=== PATIENT | female | born 1955 | race Caucasian/White ===

== ENCOUNTER → 2021-11-03 | Day surgery (SDC) | payer MEDICARE ==
[~2021-11-03] MED LIST: Lidocaine 2% PF 5 ML VIAL ONE; Sodium Bicarbonate 2.5 MEQ/5 ML VIAL ONE
== END ==
LOC: ULT 10:22
PROVIDERS: ATTEND Internal Medicine Gastroenterology
PROC: 0W9G3ZZ Drainage of Peritoneal Cavity, Percutaneous Approach (ICD-10-PCS; principal; 2021-11-03)
DX: R18.8 Other ascites (principal); Z88.0 Allergy status to penicillin; Z88.2 Allergy status to sulfonamides; Z88.8 Allergy status to other drugs, medicaments and biological substances
CPT/HCPCS: 49083; J2001

== ENCOUNTER 2021-11-09 12:32 | Day surgery (SDC) | payer MEDICARE ==
[2021-11-08 11:21] VITALS: BMI 30.2
[2021-11-09] MEDS ORDERED: Lidocaine 2% PF 5 ML VIAL ONE (12:43)
[2021-11-09] MEDS ORDERED: Sodium Bicarbonate 2.5 MEQ/5 ML VIAL ONE (12:43)
== END 2021-11-09 13:55 | disposition home or self-care (01) ==
LOC: ULT 12:32
PROVIDERS: ATTEND Internal Medicine
PROC: 0W9G3ZZ Drainage of Peritoneal Cavity, Percutaneous Approach (ICD-10-PCS; principal; 2021-11-09)
DX: C78.7 Secondary malignant neoplasm of liver and intrahepatic bile duct (principal); C78.89 Secondary malignant neoplasm of other digestive organs; C78.00 Secondary malignant neoplasm of unspecified lung; R18.0 Malignant ascites; I10 Essential (primary) hypertension; E07.9 Disorder of thyroid, unspecified; E78.5 Hyperlipidemia, unspecified; Z85.3 Personal history of malignant neoplasm of breast; Z86.711 Personal history of pulmonary embolism; Z88.0 Allergy status to penicillin; Z88.2 Allergy status to sulfonamides; Z88.8 Allergy status to other drugs, medicaments and biological substances; Z91.041 Radiographic dye allergy status
CPT/HCPCS: 49083; J2001

== ENCOUNTER 2021-11-10 10:08 | Inpatient (IN) | payer MEDICARE ==
[2021-11-10 11:08] LABS: #Eosinphils 0.1 thou/uL (0.0-0.7); #Lymphocytes 0.4 thou/uL (1.20-3.40); #Monocytes 1.3 thou/uL (0.11-0.59); #Neutrophils 15.2 thou/uL (1.40-6.50); %Basophils 0.1 % (0.0-1.0); %Eosinophils 0.6 % (0.0-10.0); %Lymphocytes 2.5 % (21.0-51.0); %Monocytes 7.6 % (0.0-10.0); %Neutrophils 89.3 % (42.0-75.0); Hemoglobin 13.7 g/dL (12.0-16.0); Mean Corpuscular HGB CONC 32.7 g/dL (32.0-36.0); Mean Corpuscular Hemoglobin 29.6 pg (27.0-31.0); Mean Corpuscular Volume 90.4 fL (78.0-98.0); Mean Platelet Volume 6.8 fL (7.4-10.4); Platelet Count 320 thou/uL (130-400); Red Blood Cell (RBC) Count 4.62 mill/uL (4.20-5.40)
[2021-11-10 11:23] LABS: ALT (SGPT) 82 U/L (8-55); AST (SGOT) 101 U/L (5-34); Albumin 2.7 g/dL (3.4-4.8); Alkaline Phosphatase 971 U/L (40-110); Anion Gap 16 mmol/L (10-20); BUN (Urea Nitrogen) 56 mg/dL (9.8-20.1); Bilirubin, Total 1.2 mg/dL (0.2-1.2); CK (CPK) 34 U/L (29-168); Calc. Creatinine Clearance 0 mL/min (70-130); Calcium 8.3 mg/dL (7.8-10.44); Carbon Dioxide 22 mmol/L (23-31); Estimated GFR 32; Glucose 181 mg/dL (80-115); Lipase 29 U/L (8-78); Potassium 4.7 mmol/L (3.5-5.1); Protein, Total 5.7 g/dL (5.8-8.1); Sodium 120 mmol/L (136-145)
[2021-11-10] MEDS ORDERED: Famotidine/PF 20 mg/2ml Vial ONE (11:24)
[2021-11-10 11:41] LABS: Chloride 87 mmol/L (98-107)
[2021-11-10 13:28] LABS: SARS-CoV-2 NAA Rapid Test Not Detected (NotDetected)
[2021-11-10] MEDS ORDERED: Zolpidem Tartrate 5 MG TAB PO PRN (13:45)
[2021-11-10] MEDS ORDERED: Ondansetron ODT 4 MG TAB PO PRN (13:45)
[2021-11-10] MEDS ORDERED: Senokot S 8.6-50 MG TAB PO PRN (13:45)
[2021-11-10] MEDS ORDERED: HYDROcodone/Acetaminophen 10/325 mg Tablet PO PRN (13:45)
[2021-11-10 14:16] LABS: Lactic Acid 2.9 mmol/L (0.5-2.2)
[2021-11-10 14:29] LABS: Magnesium 2.3 mg/dL (1.6-2.6); Phosphorus 5.3 mg/dL (2.3-4.7)
[2021-11-10 15:10] LABS: White Blood Cell (WBC) Count 17.1 thou/uL (4.8-10.8)
[2021-11-10] MEDS ORDERED: VANCOMYCIN 1.25 GM/250 ML BAG 1.25 GM in Premix Bag 1 BAG IVPB SCH (16:00)
[2021-11-10] MEDS: Sodium Chloride 0.9% 1,000 ML IV SCH (16:18)
[2021-11-10 16:51] LABS: Sodium 119 mmol/L (136-145)
[2021-11-10] MEDS: Albumin 25% 25 GM/100 ML BOT IVPB SCH (19:07)
[2021-11-10] MEDS ORDERED: ALPRAZolam 1 MG TAB PO SCH (20:00)
[2021-11-10] MEDS: Cefepime 1 GM in Sodium Chloride 0.9% 100 ML IVPB SCH (20:18)
[2021-11-10] MEDS: Apixaban 5 MG TAB PO SCH (20:18)
[2021-11-10 20:39] LABS: Sodium 121 mmol/L (136-145)
[2021-11-10] MEDS: Rosuvastatin 5 MG TAB PO SCH (22:20)
[2021-11-10 23:08] LABS: Bacteria/HPF None Seen HPF (None Seen); Bilirubin Negative (Negative); Blood, Urine Negative (Negative); Clarity Clear (Clear); Glucose, Urine (Dipstick) Normal (Negative); Ketone, Urine Negative (Negative); Leukocyte Negative Leu/uL (Negative); Nitrite Negative (Negative); Protein, Urine (Dipstick) 20 mg/dL (Neg-Trace); RBC/HPF 0-3 HPF (0-3); Specific Gravity, Urine 1.023 (1.002-1.036); Squamous Epithelial 0-3 HPF (0-3); Urobilinogen Normal mg/dL (Less than 2); WBC/HPF 0-3 HPF (0-3)
[2021-11-10 23:10] LABS: Urine Culture Reflex No No
[2021-11-11] MEDS: Albumin 25% 25 GM/100 ML BOT IVPB SCH ×3 (00:19→15:06)
[2021-11-11] MEDS: Sodium Chloride 0.9% 1,000 ML IV SCH (06:18)
[2021-11-11 06:26] LABS: #Eosinphils 0.4 thou/uL (0.0-0.7); #Lymphocytes 0.7 thou/uL (1.20-3.40); #Monocytes 1.1 thou/uL (0.11-0.59); #Neutrophils 14.5 thou/uL (1.40-6.50); %Basophils 0.2 % (0.0-1.0); %Eosinophils 2.4 % (0.0-10.0); %Lymphocytes 4.1 % (21.0-51.0); %Monocytes 6.7 % (0.0-10.0); %Neutrophils 86.7 % (42.0-75.0); Hemoglobin 12.8 g/dL (12.0-16.0); Mean Corpuscular HGB CONC 32.1 g/dL (32.0-36.0); Mean Corpuscular Hemoglobin 30.4 pg (27.0-31.0); Mean Corpuscular Volume 94.7 fL (78.0-98.0); Mean Platelet Volume 6.9 fL (7.4-10.4); Platelet Count 270 thou/uL (130-400); RBC Distribution Width 13.3 % (11.5-14.5); White Blood Cell (WBC) Count 16.8 thou/uL (4.8-10.8)
[2021-11-11] MEDS: Levothyroxine Sodium 88 MCG TAB PO SCH (06:34)
[2021-11-11 06:59] LABS: Anion Gap 17 mmol/L (10-20); BUN (Urea Nitrogen) 59 mg/dL (9.8-20.1); Calc. Creatinine Clearance 44 mL/min (70-130); Calcium 7.8 mg/dL (7.8-10.44); Carbon Dioxide 15 mmol/L (23-31); Chloride 92 mmol/L (98-107); Estimated GFR 41; Glucose 106 mg/dL (80-115); Potassium 4.4 mmol/L (3.5-5.1); Sodium 120 mmol/L (136-145)
[2021-11-11 08:07] LABS: ALT (SGPT) 57 U/L (8-55); AST (SGOT) 84 U/L (5-34); Alkaline Phosphatase 710 U/L (40-110); Bilirubin, Total 1.2 mg/dL (0.2-1.2); Protein, Total 5.6 g/dL (5.8-8.1)
[2021-11-11] MEDS ORDERED: PALONOSETRON HCL 0.05 MG/ML 5 ML VIAL IVP SCH (08:15)
[2021-11-11] MEDS ORDERED: Dexamethasone 10 MG/ML VIAL SLOW IVP SCH (08:15)
[2021-11-11] MEDS ORDERED: diphenhydrAMINE 50 MG/ML VIAL IVP SCH (08:15)
[2021-11-11] MEDS ORDERED: Sodium Bicarbonate 2.5 MEQ/5 ML VIAL ONE (08:18)
[2021-11-11] MEDS ORDERED: Lidocaine 2% PF 5 ML VIAL ONE (08:18)
[2021-11-11] MEDS ORDERED: FLU VACC QS2022-23(65YR UP)/PF 240 MCG/0.7 ML SYRINGE IM ONE (09:00)
[2021-11-11] MEDS: Cefepime 1 GM in Sodium Chloride 0.9% 100 ML IVPB SCH ×2 (09:56→20:49)
[2021-11-11] MEDS: Apixaban 5 MG TAB PO SCH ×2 (09:57→20:48)
[2021-11-11] MEDS ORDERED: SODIUM CHLORIDE 0.9% IVPB SCH ×2 (10:00)
[2021-11-11] MEDS ORDERED: CARBOPLATIN IVPB SCH (10:00)
[2021-11-11] MEDS ORDERED: PACLITAXEL IVPB SCH (10:00)
[2021-11-11 10:18] LABS: RBC Count-Automated (BF) 11051 /cu.mm; WBC/Nucleated-Auto (BF) 655 /cu.mm
[2021-11-11 10:31] LABS: Body Fluid Source Ascites Body Fluid; Tube # EDTA
[2021-11-11 10:32] LABS: BF Color Yellow; Clarity Hazy (Clear)
[2021-11-11] MEDS ORDERED: Vancomycin Sliding Scale IVPB PRN (10:33)
[2021-11-11 10:34] LABS: BF Segmented Neutrophils 21 %; Cell Count Non Hematic 43 %; Eosinophils 2 %; Lymphocytes 34 %
[2021-11-11] MEDS ORDERED: HYDROcodone/Acetaminophen 10/325 mg Tablet PO PRN (11:20)
[2021-11-11] MEDS ORDERED: Non-Formulary Item 1 EACH (Zolpidem Tartrate [Zolpidem Tartrate] 10 MG Tablet) PO PRN (11:20)
[2021-11-11] MEDS ORDERED: Docusate 100 MG CAP PO PRN (11:20)
[2021-11-11] MEDS ORDERED: Sodium Bicarbonate Tab 325 MG TAB PO SCH (12:00)
[2021-11-11] MEDS ORDERED: Senokot S 8.6-50 MG TAB PO PRN (12:15)
[2021-11-11 12:22] LABS: Anion Gap 16 mmol/L (10-20); BUN (Urea Nitrogen) 57 mg/dL (9.8-20.1); Calc. Creatinine Clearance 49 mL/min (70-130); Calcium 7.6 mg/dL (7.8-10.44); Carbon Dioxide 18 mmol/L (23-31); Chloride 92 mmol/L (98-107); Estimated GFR 46; Glucose 109 mg/dL (80-115); Sodium 122 mmol/L (136-145)
[2021-11-11] MEDS: ALPRAZolam 0.5 MG TAB PO SCH ×2 (13:08→20:48)
[2021-11-11] MEDS: Sodium Bicarbonate Tab 325 MG TAB PO SCH ×2 (15:06→20:49)
[2021-11-11 16:23] LABS: Vancomycin, Random 8.9 ug/mL (See Comment)
[2021-11-11] MEDS: Vancomycin 1 GM in Premix Bag 1 BAG IVPB SCH (17:38)
[2021-11-11] MEDS: Rosuvastatin 5 MG TAB PO SCH (20:49)
[2021-11-11] MEDS: Promethazine HCl 25 MG in Sodium Chloride 0.9% 50 ML IVPB PRN (22:02)
[2021-11-12] MEDS: Levothyroxine Sodium 88 MCG TAB PO SCH (06:01)
[2021-11-12 06:13] LABS: #Lymphocytes 0.2 thou/uL (1.20-3.40); #Monocytes 0.5 thou/uL (0.11-0.59); #Neutrophils 15.4 thou/uL (1.40-6.50); %Basophils 0.2 % (0.0-1.0); %Eosinophils 0.1 % (0.0-10.0); %Lymphocytes 1.4 % (21.0-51.0); %Monocytes 2.9 % (0.0-10.0); %Neutrophils 95.4 % (42.0-75.0); Mean Corpuscular HGB CONC 33.1 g/dL (32.0-36.0); Mean Corpuscular Hemoglobin 30.2 pg (27.0-31.0); Mean Corpuscular Volume 91.2 fL (78.0-98.0); Mean Platelet Volume 7.4 fL (7.4-10.4); Platelet Count 194 thou/uL (130-400); Red Blood Cell (RBC) Count 3.65 mill/uL (4.20-5.40); White Blood Cell (WBC) Count 16.1 thou/uL (4.8-10.8)
[2021-11-12 06:27] LABS: Anion Gap 15 mmol/L (10-20); BUN (Urea Nitrogen) 53 mg/dL (9.8-20.1); Calc. Creatinine Clearance 59 mL/min (70-130); Calcium 7.7 mg/dL (7.8-10.44); Carbon Dioxide 17 mmol/L (23-31); Chloride 99 mmol/L (98-107); Estimated GFR 58; Glucose 154 mg/dL (80-115); Potassium 4.8 mmol/L (3.5-5.1); Sodium 126 mmol/L (136-145)
[2021-11-12] MEDS: Promethazine HCl 25 MG in Sodium Chloride 0.9% 50 ML IVPB PRN ×3 (09:10→23:29)
[2021-11-12] MEDS: ALPRAZolam 0.5 MG TAB PO SCH ×3 (09:10→21:07)
[2021-11-12] MEDS: Sodium Bicarbonate Tab 325 MG TAB PO SCH ×3 (09:10→21:07)
[2021-11-12] MEDS: Cefepime 1 GM in Sodium Chloride 0.9% 100 ML IVPB SCH ×2 (09:10→21:07)
[2021-11-12] MEDS: Apixaban 5 MG TAB PO SCH ×2 (09:10→21:07)
[2021-11-12] MEDS ORDERED: Sodium Chloride 0.9% 1,000 ML IV SCH (09:30)
[2021-11-12] MEDS: Vancomycin 1 GM in Premix Bag 1 BAG IVPB SCH (16:13)
[2021-11-12] MEDS: Rosuvastatin 5 MG TAB PO SCH (21:07)
[2021-11-12] MEDS ORDERED: Bisacodyl 5 MG TAB PO PRN (23:10)
[2021-11-13] MEDS: Levothyroxine Sodium 88 MCG TAB PO SCH (05:14)
[2021-11-13 06:32] LABS: Lactic Acid 1.8 mmol/L (0.5-2.2)
[2021-11-13 06:38] LABS: ALT (SGPT) 96 U/L (8-55); AST (SGOT) 132 U/L (5-34); Albumin 3.1 g/dL (3.4-4.8); Alkaline Phosphatase 887 U/L (40-110); Anion Gap 13 mmol/L (10-20); BUN (Urea Nitrogen) 59 mg/dL (9.8-20.1); Bilirubin, Total 0.9 mg/dL (0.2-1.2); Calc. Creatinine Clearance 49 mL/min (70-130); Calcium 7.9 mg/dL (7.8-10.44); Carbon Dioxide 25 mmol/L (23-31); Chloride 95 mmol/L (98-107); Estimated GFR 46; Globulin 2.2 g/dL (2.4-3.5); Glucose 169 mg/dL (80-115); Magnesium 2.6 mg/dL (1.6-2.6); Potassium 4.1 mmol/L (3.5-5.1); Protein, Total 5.3 g/dL (5.8-8.1); Sodium 129 mmol/L (136-145)
[2021-11-13 06:45] LABS: Band 2 % (5-11); Hemoglobin 12.2 g/dL (12.0-16.0); Lymphocytes 1 % (21-51); MDiff Complete? YES; Mean Corpuscular HGB CONC 32.4 g/dL (32.0-36.0); Mean Corpuscular Hemoglobin 29.7 pg (27.0-31.0); Mean Corpuscular Volume 91.7 fL (78.0-98.0); Mean Platelet Volume 7.7 fL (7.4-10.4); Monocytes 2 % (0-10); Neutrophil 95 % (42-75); Platelet Count 218 thou/uL (130-400); RBC Distribution Width 13.4 % (11.5-14.5); Red Blood Cell (RBC) Count 4.11 mill/uL (4.20-5.40); White Blood Cell (WBC) Count 21.4 thou/uL (4.8-10.8)
[2021-11-13] MEDS: Sodium Bicarbonate Tab 325 MG TAB PO SCH ×2 (08:46→14:35)
[2021-11-13] MEDS: Cefepime 1 GM in Sodium Chloride 0.9% 100 ML IVPB SCH ×2 (08:47→21:01)
[2021-11-13] MEDS: Apixaban 5 MG TAB PO SCH ×2 (08:47→21:01)
[2021-11-13] MEDS: ALPRAZolam 0.5 MG TAB PO SCH ×3 (08:47→21:01)
[2021-11-13] MEDS ORDERED: Polyethylene Glycol 3350 17 GM Packet PO SCH ×2 (10:50→11:00)
[2021-11-13] MEDS ORDERED: Famotidine 20 MG TAB PO SCH (11:00)
[2021-11-13] MEDS ORDERED: Sodium Chloride 0.9% 1,000 ML IV SCH (11:15)
[2021-11-13] MEDS: Senokot S 8.6-50 MG TAB PO SCH (12:49)
[2021-11-13] MEDS: Promethazine HCl 25 MG in Sodium Chloride 0.9% 50 ML IVPB PRN (13:48)
[2021-11-13] MEDS: Albumin 25% 25 GM/100 ML BOT IVPB SCH ×2 (14:38→21:00)
[2021-11-13 16:31] LABS: Vancomycin, Trough 17.8 ug/mL
[2021-11-13] MEDS: Famotidine 20 MG TAB PO SCH (21:01)
[2021-11-13] MEDS: Rosuvastatin 5 MG TAB PO SCH (21:01)
[2021-11-13] MEDS: Acetaminophen 325 MG TAB PO PRN (22:56)
[2021-11-14] MEDS: Levothyroxine Sodium 88 MCG TAB PO SCH (05:27)
[2021-11-14 05:37] LABS: #Eosinphils 0.2 thou/uL (0.0-0.7); #Lymphocytes 0.4 thou/uL (1.20-3.40); #Monocytes 0.2 thou/uL (0.11-0.59); #Neutrophils 18.6 thou/uL (1.40-6.50); %Eosinophils 1.2 % (0.0-10.0); %Lymphocytes 2.3 % (21.0-51.0); %Monocytes 0.9 % (0.0-10.0); %Neutrophils 95.7 % (42.0-75.0); Hemoglobin 10.8 g/dL (12.0-16.0); Mean Corpuscular HGB CONC 32.1 g/dL (32.0-36.0); Mean Corpuscular Hemoglobin 29.5 pg (27.0-31.0); Mean Platelet Volume 7.9 fL (7.4-10.4); Platelet Count 146 thou/uL (130-400); RBC Distribution Width 13.5 % (11.5-14.5); Red Blood Cell (RBC) Count 3.67 mill/uL (4.20-5.40); White Blood Cell (WBC) Count 19.4 thou/uL (4.8-10.8)
[2021-11-14 05:56] LABS: ALT (SGPT) 75 U/L (8-55); AST (SGOT) 96 U/L (5-34); Albumin 3.3 g/dL (3.4-4.8); Alkaline Phosphatase 684 U/L (40-110); Anion Gap 14 mmol/L (10-20); BUN (Urea Nitrogen) 57 mg/dL (9.8-20.1); Bilirubin, Total 1.1 mg/dL (0.2-1.2); Calc. Creatinine Clearance 55 mL/min (70-130); Calcium 7.9 mg/dL (7.8-10.44); Carbon Dioxide 21 mmol/L (23-31); Chloride 98 mmol/L (98-107); Estimated GFR 53; Globulin 1.8 g/dL (2.4-3.5); Glucose 120 mg/dL (80-115); Magnesium 2.7 mg/dL (1.6-2.6); Protein, Total 5.1 g/dL (5.8-8.1); Sodium 129 mmol/L (136-145)
[2021-11-14] MEDS: Acetaminophen 325 MG TAB PO PRN ×2 (06:42→20:45)
[2021-11-14] MEDS: Albumin 25% 25 GM/100 ML BOT IVPB SCH (08:52)
[2021-11-14] MEDS: Polyethylene Glycol 3350 17 GM Packet PO SCH (08:53)
[2021-11-14] MEDS: Apixaban 5 MG TAB PO SCH (08:53)
[2021-11-14] MEDS: Senokot S 8.6-50 MG TAB PO SCH ×3 (08:53→21:34)
[2021-11-14] MEDS: ALPRAZolam 0.5 MG TAB PO SCH ×3 (08:53→20:44)
[2021-11-14] MEDS: Famotidine 20 MG TAB PO SCH (08:53)
[2021-11-14] MEDS: Calcium Carbonate 500 MG ChewTAB PO PRN ×2 (09:50→14:30)
[2021-11-14] MEDS ORDERED: Metoclopramide HCl 10 MG TAB PO PRN (10:10)
[2021-11-14] MEDS ORDERED: Ciprofloxacin 500 MG TAB PO SCH ×2 (10:45→22:00)
[2021-11-14] MEDS: Cefepime 1 GM in Sodium Chloride 0.9% 100 ML IVPB SCH (10:52)
[2021-11-14] MEDS ORDERED: Sodium Chloride 0.9% 1,000 ML IV SCH (14:45)
[2021-11-14] MEDS ORDERED: Pantoprazole 40 MG VIAL IVP SCH (15:00)
[2021-11-14 15:07] LABS: Hemoglobin 11.5 g/dL (12.0-16.0)
[2021-11-14 15:23] LABS: INR-International Normal Ratio 2.1; PTT 31.5 sec (22.9-36.1); Prothrombin Time 24.1 sec (12.0-14.7)
[2021-11-14] MEDS: Rosuvastatin 5 MG TAB PO SCH (20:44)
[2021-11-15] MEDS: Levothyroxine Sodium 88 MCG TAB PO SCH (04:52)
[2021-11-15] MEDS: Acetaminophen 325 MG TAB PO PRN (04:52)
[2021-11-15 06:14] LABS: #Basophils 0.1 thou/uL (0.0-0.2); #Eosinphils 0.2 thou/uL (0.0-0.7); #Lymphocytes 0.4 thou/uL (1.20-3.40); #Neutrophils 17.9 thou/uL (1.40-6.50); %Basophils 0.4 % (0.0-1.0); %Eosinophils 1.3 % (0.0-10.0); %Monocytes 0.1 % (0.0-10.0); %Neutrophils 96.3 % (42.0-75.0); Hemoglobin 11.2 g/dL (12.0-16.0); Mean Corpuscular HGB CONC 32.6 g/dL (32.0-36.0); Mean Corpuscular Hemoglobin 29.9 pg (27.0-31.0); Mean Corpuscular Volume 91.7 fL (78.0-98.0); Mean Platelet Volume 8.5 fL (7.4-10.4); Platelet Count 136 thou/uL (130-400); RBC Distribution Width 13.5 % (11.5-14.5); Red Blood Cell (RBC) Count 3.76 mill/uL (4.20-5.40); White Blood Cell (WBC) Count 18.6 thou/uL (4.8-10.8)
[2021-11-15 06:26] LABS: INR-International Normal Ratio 1.9; Prothrombin Time 22.6 sec (12.0-14.7)
[2021-11-15 06:27] LABS: PTT 33.9 sec (22.9-36.1)
[2021-11-15 06:34] LABS: ALT (SGPT) 67 U/L (8-55); AST (SGOT) 72 U/L (5-34); Albumin 3.4 g/dL (3.4-4.8); Alkaline Phosphatase 687 U/L (40-110); Anion Gap 15 mmol/L (10-20); BUN (Urea Nitrogen) 59 mg/dL (9.8-20.1); Bilirubin, Total 1.3 mg/dL (0.2-1.2); Calc. Creatinine Clearance 54 mL/min (70-130); Calcium 8.2 mg/dL (7.8-10.44); Carbon Dioxide 18 mmol/L (23-31); Chloride 97 mmol/L (98-107); Estimated GFR 53; Globulin 1.7 g/dL (2.4-3.5); Glucose 148 mg/dL (80-115); Magnesium 2.6 mg/dL (1.6-2.6); Potassium 4.1 mmol/L (3.5-5.1); Protein, Total 5.1 g/dL (5.8-8.1); Sodium 126 mmol/L (136-145)
[2021-11-15] MEDS: ALPRAZolam 0.5 MG TAB PO SCH ×3 (09:18→19:36)
[2021-11-15] MEDS: Senokot S 8.6-50 MG TAB PO SCH ×2 (09:18→21:05)
[2021-11-15] MEDS: Pantoprazole 40 MG VIAL IVP SCH ×2 (09:18→21:04)
[2021-11-15] MEDS: Polyethylene Glycol 3350 17 GM Packet PO SCH (09:18)
[2021-11-15] MEDS: Sodium Chloride 1 GM TAB PO SCH ×3 (09:26→21:04)
[2021-11-15] MEDS ORDERED: Promethazine HCl 25 MG in Sodium Chloride 0.9% 50 ML IVPB PRN (11:47)
[2021-11-15] MEDS ORDERED: Promethazine HCl 25 MG in Sodium Chloride 0.9% 50 ML IVPB SCH (12:45)
[2021-11-15] MEDS ORDERED: Metoclopramide HCl 10 MG TAB PO PRN (13:22)
[2021-11-15 13:42] VITALS: BMI 28.9
[2021-11-15] MEDS ORDERED: Lidocaine 2% PF 5 ML VIAL ONE (15:17)
[2021-11-15] MEDS ORDERED: Sodium Bicarbonate 2.5 MEQ/5 ML VIAL ONE (15:17)
[2021-11-15] MEDS: Apixaban 5 MG TAB PO SCH (21:04)
[2021-11-15] MEDS: Rosuvastatin 5 MG TAB PO SCH (21:04)
[2021-11-16 05:44] LABS: ALT (SGPT) 60 U/L (8-55); AST (SGOT) 77 U/L (5-34); Albumin 2.9 g/dL (3.4-4.8); Alkaline Phosphatase 742 U/L (40-110); Anion Gap 15 mmol/L (10-20); BUN (Urea Nitrogen) 63 mg/dL (9.8-20.1); Calc. Creatinine Clearance 55 mL/min (70-130); Calcium 8.1 mg/dL (7.8-10.44); Carbon Dioxide 19 mmol/L (23-31); Chloride 99 mmol/L (98-107); Estimated GFR 53; Globulin 1.8 g/dL (2.4-3.5); Glucose 125 mg/dL (80-115); Magnesium 2.6 mg/dL (1.6-2.6); Potassium 4.4 mmol/L (3.5-5.1); Protein, Total 4.7 g/dL (5.8-8.1); Sodium 129 mmol/L (136-145)
[2021-11-16 05:46] LABS: INR-International Normal Ratio 1.4; PTT 31.2 sec (22.9-36.1); Prothrombin Time 17.7 sec (12.0-14.7)
[2021-11-16] MEDS: Levothyroxine Sodium 88 MCG TAB PO SCH (05:46)
[2021-11-16 06:49] LABS: Band 12 % (5-11); Hemoglobin 11.1 g/dL (12.0-16.0); Lymphocytes 2 % (21-51); MDiff Complete? YES; Mean Corpuscular HGB CONC 31.8 g/dL (32.0-36.0); Mean Corpuscular Hemoglobin 29.3 pg (27.0-31.0); Mean Corpuscular Volume 92.1 fL (78.0-98.0); Mean Platelet Volume 9.3 fL (7.4-10.4); Neutrophil 86 % (42-75); Platelet Count 97 thou/uL (130-400); Platelet Morphology Comment Appears Decreased; RBC Distribution Width 13.4 % (11.5-14.5); White Blood Cell (WBC) Count 11.4 thou/uL (4.8-10.8)
[2021-11-16 08:00] VITALS: BP 124/76; TEMP 97.5
[2021-11-16] MEDS: Pantoprazole 40 MG VIAL IVP SCH (08:17)
[2021-11-16] MEDS: ALPRAZolam 0.5 MG TAB PO SCH (08:17)
[2021-11-16] MEDS: Sodium Chloride 1 GM TAB PO SCH (08:17)
[2021-11-16] MEDS: Senokot S 8.6-50 MG TAB PO SCH (08:17)
[2021-11-16] MEDS: Apixaban 5 MG TAB PO SCH (08:17)
[2021-11-16] MEDS: Polyethylene Glycol 3350 17 GM Packet PO SCH (08:18)
== END 2021-11-16 15:40 | disposition home or self-care (01) | DRG 644 ==
LOC: SUATTDRO 10:08 → ERS 10:08 → MSONC 13:26
PROVIDERS: ADMIT Physician Assistant; ATTEND Family Medicine
PROC: 3E03305 Introduction of Other Antineoplastic into Peripheral Vein, Percutaneous Approach (ICD-10-PCS; principal; 2021-11-11)
PROC: 0W9G3ZZ Drainage of Peritoneal Cavity, Percutaneous Approach (ICD-10-PCS; 2021-11-11)
PROC: 30233J1 Transfusion of Nonautologous Serum Albumin into Peripheral Vein, Percutaneous Approach (ICD-10-PCS; 2021-11-13)
PROC: 0W9G3ZZ Drainage of Peritoneal Cavity, Percutaneous Approach (ICD-10-PCS; 2021-11-15)
DX: E22.2 Syndrome of inappropriate secretion of antidiuretic hormone (principal); C78.7 Secondary malignant neoplasm of liver and intrahepatic bile duct; R18.0 Malignant ascites; N17.9 Acute kidney failure, unspecified; K92.1 Melena; E87.21 Acute metabolic acidosis; C78.89 Secondary malignant neoplasm of other digestive organs; Z51.5 Encounter for palliative care; C50.919 Malignant neoplasm of unspecified site of unspecified female breast; E03.9 Hypothyroidism, unspecified; F41.9 Anxiety disorder, unspecified; E78.5 Hyperlipidemia, unspecified; I12.9 Hypertensive chronic kidney disease with stage 1 through stage 4 chronic kidney disease, or unspecified chronic kidney disease; E86.0 Dehydration; D69.59 Other secondary thrombocytopenia; T45.1X5A Adverse effect of antineoplastic and immunosuppressive drugs, initial encounter; K21.9 Gastro-esophageal reflux disease without esophagitis; R79.89 Other specified abnormal findings of blood chemistry; N18.30 Chronic kidney disease, stage 3 unspecified; D63.1 Anemia in chronic kidney disease; R14.0 Abdominal distension (gaseous); Z20.822 Contact with and (suspected) exposure to COVID-19; Z79.899 Other long term (current) drug therapy; Z79.890 Hormone replacement therapy; Z79.01 Long term (current) use of anticoagulants; Z86.711 Personal history of pulmonary embolism; Z88.0 Allergy status to penicillin; Z88.2 Allergy status to sulfonamides; Z91.018 Allergy to other foods
CPT/HCPCS: 36415; 36416; 49083; 71045; 74176; 80048; 80053; 80202; 81001; 82040; 82247; 82436; 82550; 83605; 83690; 83735; 83930; 83935; 84075; 84100; 84145; 84155; 84300; 84443; 84450; 84460; 84484; 85025; 85048; 85060; 85610; 85730; 86850; 86900; 86901; 87070; 87205; 89051; 93005; 96374; C9113; J0692; J1100; J1200; J1453; J2001; J2469; J2550; J3370; J3490; J7050; J9045; J9267; P9047; S0028; U0002

== ENCOUNTER 2021-11-21 13:16 | Inpatient (IN) | payer MEDICARE ==
[2021-11-21] MEDS ORDERED: Non-Formulary Item 1 EACH (Zolpidem Tartrate [Zolpidem Tartrate] 10 MG Tablet) PO PRN (19:53)
[2021-11-21] MEDS ORDERED: Senokot S 8.6-50 MG TAB PO PRN (19:53)
[2021-11-21] MEDS ORDERED: ALPRAZolam 0.25 MG TAB PO PRN (20:00)
[2021-11-21] MEDS ORDERED: Acetaminophen 325 MG TAB PO PRN (20:01)
[2021-11-21] MEDS ORDERED: Apixaban 5 MG TAB PO SCH (21:00)
[2021-11-21] MEDS ORDERED: Rosuvastatin 5 MG TAB PO SCH (21:00)
[2021-11-21] MEDS: Sodium Chloride 0.9% 500 ML IV SCH (21:12)
[2021-11-21] MEDS: Famotidine 20 MG TAB PO SCH (21:13)
[2021-11-22 04:59] LABS: ALT (SGPT) 80 U/L (8-55); AST (SGOT) 103 U/L (5-34); Albumin 3.1 g/dL (3.4-4.8); Alkaline Phosphatase 1123 U/L (40-110); Anion Gap 17 mmol/L (10-20); BUN (Urea Nitrogen) 82 mg/dL (9.8-20.1); Bilirubin, Total 1.4 mg/dL (0.2-1.2); Calc. Creatinine Clearance 37 mL/min (70-130); Calcium 8.1 mg/dL (7.8-10.44); Carbon Dioxide 18 mmol/L (23-31); Chloride 100 mmol/L (98-107); Estimated GFR 34; Globulin 1.7 g/dL (2.4-3.5); Glucose 101 mg/dL (80-115); Potassium 5.1 mmol/L (3.5-5.1); Protein, Total 4.8 g/dL (5.8-8.1); Sodium 130 mmol/L (136-145)
[2021-11-22 05:37] LABS: Band 2 % (5-11); Hemoglobin 10.3 g/dL (12.0-16.0); Hypochromia SLIGHT = 6-15 cells (100X) (0-5/hpf); Lymphocytes 27 % (21-51); MDiff Complete? YES; Mean Corpuscular HGB CONC 33.6 g/dL (32.0-36.0); Mean Corpuscular Hemoglobin 30.7 pg (27.0-31.0); Mean Corpuscular Volume 91.2 fL (78.0-98.0); Mean Platelet Volume 7.6 fL (7.4-10.4); Monocytes 13 % (0-10); Neutrophil 54 % (42-75); Platelet Count 141 thou/uL (130-400); Platelet Morphology Comment Appears Adequate; RBC Distribution Width 14.3 % (11.5-14.5); Reactive Lymphocytes 4 % (0-10); Red Blood Cell (RBC) Count 3.35 mill/uL (4.20-5.40); White Blood Cell (WBC) Count 1.7 thou/uL (4.8-10.8)
[2021-11-22] MEDS: Levothyroxine Sodium 88 MCG TAB PO SCH (06:14)
[2021-11-22] MEDS: Sodium Chloride 0.9% 500 ML IV SCH ×2 (06:34→13:29)
[2021-11-22] MEDS ORDERED: HYDROcodone/Acetaminophen 10/325 mg Tablet PO PRN (08:39)
[2021-11-22] MEDS: ALPRAZolam 0.5 MG TAB PO SCH ×3 (09:41→21:15)
[2021-11-22] MEDS ORDERED: Zolpidem Tartrate 5 MG TAB PO PRN (21:01)
[2021-11-22] MEDS: Simethicone Chewable 80 MG TAB PO PRN (21:15)
[2021-11-22] MEDS: Enoxaparin Sodium 80 MG/0.8 ML SYRINGE SC SCH (21:15)
[2021-11-22] MEDS: Famotidine 20 MG TAB PO SCH (21:15)
[2021-11-22] MEDS: Zolpidem Tartrate 5 MG TAB PO PRN (21:16)
[2021-11-23] MEDS: Sodium Chloride 0.9% 500 ML IV SCH ×2 (04:46→21:29)
[2021-11-23] MEDS: Levothyroxine Sodium 88 MCG TAB PO SCH (06:04)
[2021-11-23 06:10] LABS: ALT (SGPT) 90 U/L (8-55); AST (SGOT) 110 U/L (5-34); Albumin 2.7 g/dL (3.4-4.8); Alkaline Phosphatase 1166 U/L (40-110); Anion Gap 17 mmol/L (10-20); BUN (Urea Nitrogen) 79 mg/dL (9.8-20.1); Bilirubin, Total 1.2 mg/dL (0.2-1.2); Calc. Creatinine Clearance 46 mL/min (70-130); Calcium 7.6 mg/dL (7.8-10.44); Carbon Dioxide 14 mmol/L (23-31); Chloride 102 mmol/L (98-107); Estimated GFR 45; Globulin 1.9 g/dL (2.4-3.5); Glucose 120 mg/dL (80-115); Potassium 4.2 mmol/L (3.5-5.1); Protein, Total 4.6 g/dL (5.8-8.1); Sodium 129 mmol/L (136-145)
[2021-11-23 06:39] LABS: Hemoglobin 9.7 g/dL (12.0-16.0); Mean Corpuscular HGB CONC 33.3 g/dL (32.0-36.0); Mean Corpuscular Hemoglobin 30.3 pg (27.0-31.0); Platelet Count 134 thou/uL (130-400); Red Blood Cell (RBC) Count 3.21 mill/uL (4.20-5.40); White Blood Cell (WBC) Count 2.2 thou/uL (4.8-10.8)
[2021-11-23 06:50] LABS: Band 22 % (5-11); Eosinophils 6 % (0-10); Lymphocytes 12 % (21-51); MDiff Complete? YES; Monocytes 19 % (0-10); Neutrophil 40 % (42-75); Platelet Morphology Comment Appears Adequate; RBC Morphology Normal; Reactive Lymphocytes 1 % (0-10)
[2021-11-23] MEDS: Promethazine 25 MG TAB PO PRN ×2 (07:15→19:30)
[2021-11-23] MEDS ORDERED: Potassium Bicarbonate/Cit Ac 20 MEQ TAB PO SCH (09:15)
[2021-11-23] MEDS ORDERED: Sodium Bicarbonate 150 MEQ in Dextrose 5% in Water 1,000 ML IV SCH (09:15)
[2021-11-23] MEDS: Enoxaparin Sodium 80 MG/0.8 ML SYRINGE SC SCH (09:40)
[2021-11-23] MEDS: ALPRAZolam 0.5 MG TAB PO SCH ×4 (09:41→19:30)
[2021-11-23] MEDS ORDERED: diphenhydrAMINE 25 MG CAP PO PRN (12:54)
[2021-11-23 14:09] VITALS: BMI 27.8
[2021-11-23] MEDS: Metoclopramide 10 MG/10 ML UDCUP PO PRN (14:44)
[2021-11-23] MEDS: Simethicone Chewable 80 MG TAB PO PRN (19:30)
[2021-11-23] MEDS: Famotidine 20 MG TAB PO SCH (19:30)
[2021-11-24] MEDS: Metoclopramide 10 MG/10 ML UDCUP PO PRN (03:28)
[2021-11-24] MEDS: Levothyroxine Sodium 88 MCG TAB PO SCH (04:45)
[2021-11-24] MEDS: Promethazine 25 MG TAB PO PRN (05:24)
[2021-11-24 05:34] LABS: #Lymphocytes 0.5 thou/uL (1.20-3.40); #Monocytes 0.7 thou/uL (0.11-0.59); #Neutrophils 3.5 thou/uL (1.40-6.50); %Basophils 0.4 % (0.0-1.0); %Eosinophils 0.9 % (0.0-10.0); %Lymphocytes 10.2 % (21.0-51.0); %Monocytes 14.6 % (0.0-10.0); %Neutrophils 73.9 % (42.0-75.0); Hemoglobin 10.6 g/dL (12.0-16.0); Mean Corpuscular HGB CONC 32.8 g/dL (32.0-36.0); Mean Corpuscular Hemoglobin 29.7 pg (27.0-31.0); Mean Corpuscular Volume 90.5 fL (78.0-98.0); Mean Platelet Volume 7.7 fL (7.4-10.4); Platelet Count 135 thou/uL (130-400); RBC Distribution Width 15.3 % (11.5-14.5); Red Blood Cell (RBC) Count 3.57 mill/uL (4.20-5.40); White Blood Cell (WBC) Count 4.8 thou/uL (4.8-10.8)
[2021-11-24 06:36] LABS: Anion Gap 17 mmol/L (10-20); BUN (Urea Nitrogen) 69 mg/dL (9.8-20.1); Calc. Creatinine Clearance 49 mL/min (70-130); Calcium 7.6 mg/dL (7.8-10.44); Carbon Dioxide 19 mmol/L (23-31); Chloride 99 mmol/L (98-107); Estimated GFR 48; Glucose 139 mg/dL (80-115); Potassium 4.4 mmol/L (3.5-5.1); Sodium 131 mmol/L (136-145)
[2021-11-24] MEDS ORDERED: Pantoprazole 40 MG VIAL IVP SCH (07:00)
[2021-11-24] MEDS ORDERED: Lidocaine 2% Viscous Solution 20 ML, Aluminum & Magnesium Hydroxide 30 ML, Donnatal Eli... SSW SCH (07:15)
[2021-11-24] MEDS: ALPRAZolam 0.5 MG TAB PO SCH ×3 (08:41→20:42)
[2021-11-24] MEDS ORDERED: Metoclopramide 10 MG/10 ML UDCUP PO PRN (09:11)
[2021-11-24] MEDS ORDERED: Midazolam HCl 2 mg/2 ml Vial ONE (09:59)
[2021-11-24] MEDS ORDERED: Lidocaine 2% PF 5 ML VIAL ONE (09:59)
[2021-11-24] MEDS ORDERED: Fentanyl 100 MCG/2 ML VIAL ONE (09:59)
[2021-11-24] MEDS ORDERED: Sodium Bicarbonate 2.5 MEQ/5 ML VIAL ONE (09:59)
[2021-11-24] MEDS ORDERED: Levofloxacin 500 mg/D5W 100 ml Premix Bag ONE (10:27)
[2021-11-24] MEDS ORDERED: EPINEPHrine 1 MG/ML AMP ONE (11:35)
[2021-11-24] MEDS ORDERED: Lidocaine 1% (PF) 30 ML VIAL ONE (11:36)
[2021-11-24] MEDS: Sodium Chloride 0.9% 500 ML IV SCH ×3 (15:44→20:48)
[2021-11-24 16:59] LABS: Hemoglobin 10.4 g/dL (12.0-16.0); Mean Corpuscular HGB CONC 32.5 g/dL (32.0-36.0); Mean Corpuscular Hemoglobin 29.8 pg (27.0-31.0); Mean Corpuscular Volume 91.7 fL (78.0-98.0); Mean Platelet Volume 7.7 fL (7.4-10.4); Platelet Count 131 thou/uL (130-400); RBC Distribution Width 15.3 % (11.5-14.5); White Blood Cell (WBC) Count 6.4 thou/uL (4.8-10.8)
[2021-11-24] MEDS: Lactated Ringer's 1,000 ML IV SCH (18:37)
[2021-11-24] MEDS: Famotidine 20 MG TAB PO SCH (20:42)
[2021-11-25] MEDS: Zolpidem Tartrate 5 MG TAB PO PRN (01:15)
[2021-11-25] MEDS: Levothyroxine Sodium 88 MCG TAB PO SCH (05:13)
[2021-11-25] MEDS: Lactated Ringer's 1,000 ML IV SCH ×4 (05:13→18:24)
[2021-11-25 05:54] LABS: #Eosinphils 0.1 thou/uL (0.0-0.7); #Lymphocytes 0.6 thou/uL (1.20-3.40); #Monocytes 0.8 thou/uL (0.11-0.59); %Basophils 0.3 % (0.0-1.0); %Eosinophils 0.9 % (0.0-10.0); %Lymphocytes 8.2 % (21.0-51.0); %Monocytes 11.2 % (0.0-10.0); %Neutrophils 79.4 % (42.0-75.0); Hemoglobin 10.4 g/dL (12.0-16.0); Mean Corpuscular HGB CONC 32.1 g/dL (32.0-36.0); Mean Corpuscular Hemoglobin 29.8 pg (27.0-31.0); Mean Corpuscular Volume 92.9 fL (78.0-98.0); Platelet Count 125 thou/uL (130-400); RBC Distribution Width 15.2 % (11.5-14.5); Red Blood Cell (RBC) Count 3.48 mill/uL (4.20-5.40); White Blood Cell (WBC) Count 7.5 thou/uL (4.8-10.8)
[2021-11-25 06:15] LABS: Anion Gap 14 mmol/L (10-20); BUN (Urea Nitrogen) 63 mg/dL (9.8-20.1); Calc. Creatinine Clearance 51 mL/min (70-130); Calcium 7.1 mg/dL (7.8-10.44); Carbon Dioxide 19 mmol/L (23-31); Chloride 102 mmol/L (98-107); Estimated GFR 51; Glucose 104 mg/dL (80-115); Potassium 4.2 mmol/L (3.5-5.1); Sodium 131 mmol/L (136-145)
[2021-11-25] MEDS: ALPRAZolam 0.5 MG TAB PO SCH ×3 (08:25→22:14)
[2021-11-25] MEDS: Famotidine 20 MG TAB PO SCH (22:14)
[2021-11-26] MEDS: Enoxaparin Sodium 80 MG/0.8 ML SYRINGE SC SCH ×3 (02:12→22:02)
[2021-11-26] MEDS: Levothyroxine Sodium 88 MCG TAB PO SCH (06:41)
[2021-11-26] MEDS: ALPRAZolam 0.5 MG TAB PO SCH ×4 (08:33→21:27)
[2021-11-26] MEDS: Famotidine 20 MG TAB PO SCH (21:27)
[2021-11-27] MEDS: Levothyroxine Sodium 88 MCG TAB PO SCH (06:04)
[2021-11-27] MEDS: ALPRAZolam 0.5 MG TAB PO SCH ×3 (09:29→21:46)
[2021-11-27] MEDS: Enoxaparin Sodium 80 MG/0.8 ML SYRINGE SC SCH (09:55)
[2021-11-27] MEDS: Simethicone Chewable 80 MG TAB PO PRN (17:44)
[2021-11-27] MEDS: Famotidine 20 MG TAB PO SCH (21:46)
[2021-11-28] MEDS: Levothyroxine Sodium 88 MCG TAB PO SCH (06:42)
[2021-11-28] MEDS: ALPRAZolam 0.5 MG TAB PO SCH ×3 (08:25→20:39)
[2021-11-28] MEDS ORDERED: BIOTENE MOUTH SPRAY 44.3 ML MM PRN (12:24)
[2021-11-28] MEDS: Calcium Carbonate 500 MG ChewTAB PO PRN (12:29)
[2021-11-28] MEDS: Famotidine 20 MG TAB PO SCH (20:39)
[2021-11-28 21:01] VITALS: TEMP 97.5
[2021-11-29] MEDS: Zolpidem Tartrate 5 MG TAB PO SCH ×2 (01:08→01:09)
[2021-11-29] MEDS: Levothyroxine Sodium 88 MCG TAB PO SCH (05:59)
[2021-11-29 08:27] VITALS: BP 106/77
[2021-11-29] MEDS: ALPRAZolam 0.5 MG TAB PO SCH (08:34)
[2021-11-29] MEDS: Calcium Carbonate 500 MG ChewTAB PO PRN (13:02)
== END 2021-11-29 14:30 | disposition hospice, inpatient (51) | DRG 375 ==
LOC: 2NO 16:08 → MSONC 11-23 17:12
PROVIDERS: ADMIT Hospitalist; ATTEND Internal Medicine
PROC: 0W9G30Z Drainage of Peritoneal Cavity with Drainage Device, Percutaneous Approach (ICD-10-PCS; principal; 2021-11-24)
PROC: 0W9G30Z Drainage of Peritoneal Cavity with Drainage Device, Percutaneous Approach (ICD-10-PCS; 2021-11-29)
DX: C78.89 Secondary malignant neoplasm of other digestive organs (principal); E22.2 Syndrome of inappropriate secretion of antidiuretic hormone; R18.0 Malignant ascites; N17.9 Acute kidney failure, unspecified; E87.20 Acidosis, unspecified; C50.919 Malignant neoplasm of unspecified site of unspecified female breast; Z51.5 Encounter for palliative care; D75.9 Disease of blood and blood-forming organs, unspecified; T45.1X5A Adverse effect of antineoplastic and immunosuppressive drugs, initial encounter; E86.0 Dehydration; R94.5 Abnormal results of liver function studies; I12.9 Hypertensive chronic kidney disease with stage 1 through stage 4 chronic kidney disease, or unspecified chronic kidney disease; N18.30 Chronic kidney disease, stage 3 unspecified; I95.9 Hypotension, unspecified; Z17.0 Estrogen receptor positive status [ER+]; F41.9 Anxiety disorder, unspecified; Z88.0 Allergy status to penicillin; Z88.2 Allergy status to sulfonamides; Z91.041 Radiographic dye allergy status; E03.9 Hypothyroidism, unspecified; E78.5 Hyperlipidemia, unspecified; Z86.711 Personal history of pulmonary embolism; Z79.01 Long term (current) use of anticoagulants; Z79.890 Hormone replacement therapy; K21.9 Gastro-esophageal reflux disease without esophagitis; Z79.899 Other long term (current) drug therapy; D63.1 Anemia in chronic kidney disease; E87.5 Hyperkalemia; Z88.8 Allergy status to other drugs, medicaments and biological substances; Z92.3 Personal history of irradiation
CPT/HCPCS: 36415; 49421; 75989; 80048; 80053; 85025; 86300; 86301; C9113; J0171; J1650; J1956; J2001; J2250; J3010; J7050; J7070; J7120; Q0169